=== PATIENT | male | born 1970 | race Two or more races ===

== ENCOUNTER 2021-05-19 00:56 | Inpatient (IN) | payer MEDICAID, OTHER ==
[2021-05-19] VITALS (8 sets, daily range): BP systolic 74–114; BP diastolic 23–58
[~2021-05-19] VITALS: Ht 177.8 cm; Wt 122.5 kg
[2021-05-19 01:51] LABS: Basophils # (auto) 0.1 10 ^3/uL (0-0.2); Basophils % (auto) 0.6 % (0.0-2.0); Eosinophils # (auto) 0.1 10 ^3/uL (0-0.8); Eosinophils % (auto) 0.7 % (0.0-7.0); Hematocrit 20.4 % (41.0-53.0); Hemoglobin 7.3 g/dL (13.5-17.5); Lymphocytes # (auto) 1.2 10 ^3/uL (0.4-5.4); Lymphocytes % (auto) 12.7 % (10.0-50.0); Mean Corpuscular Hemoglobin 37.7 pg (28.0-32.0); Mean Corpuscular Hgb Conc. 35.8 g/dL (32.0-36.0); Mean Corpuscular Volume 105.2 fL (80.0-100.0); Monocytes # (auto) 1.7 10 ^3/uL (0-1.3); Monocytes % (auto) 17.4 % (0.0-12.0); Neutrophils # (auto) 6.7 10 ^3/uL (1.6-8.6); Neutrophils % (auto) 68.6 % (37.0-80.0); Nucleated Red Blood Cells % 0.3 %; Red Blood Cells 1.93 10^6/uL (4.5-5.90); Red Cell Distribution Width 18.6 % (11.8-14.3); White Blood Cell 9.8 10^3/uL (4.4-10.8)
[2021-05-19 01:52] LABS: Albumin 2.8 g/dL (3.4-5.0); BUN/Creatinine Ratio 4.6; Calcium 9.6 mg/dL (8.5-10.1)
[2021-05-19 02:04] LABS: Bilirubin, Total 28.3 mg/dL (0.2-1.0); Total Protein 6.6 g/dL (6.4-8.2)
[2021-05-19] MEDS ORDERED: SODIUM CHL 0.9% IV ONE (03:45)
[2021-05-19] MEDS ORDERED: DESMOPRESSIN IV ONE (03:45)
[2021-05-19] MEDS ORDERED: NITROGLYCERIN 0.4 MG SL TAB SL PRN (09:45)
[2021-05-19] MEDS ORDERED: MORPHINE SULFATE INJECTION 2 MG/ML SYRG IV PRN (09:45)
[2021-05-19] MEDS ORDERED: LACTULOSE 20Gm/30ML SOLN PO SCH (10:00)
[2021-05-19] MEDS ORDERED: PHYTONADIONE (VIT K)10 MG/ML 1ML VIAL SUBCUT ONE (10:00)
[2021-05-19 10:21] LABS: Basophils # (auto) 0 10 ^3/uL (0-0.2); Eosinophils # (auto) 0.1 10 ^3/uL (0-0.8); Eosinophils % (auto) 0.8 % (0.0-7.0); Neutrophils % (auto) 73.1 % (37.0-80.0); Nucleated Red Blood Cells % 0.1 %
[2021-05-19 10:24] LABS: Basophils % (auto) 0.5 % (0.0-2.0); Hemoglobin 8.8 g/dL (13.5-17.5); Lymphocytes # (auto) 0.8 10 ^3/uL (0.4-5.4); Mean Corpuscular Volume 98.3 fL (80.0-100.0); Monocytes # (auto) 1.8 10 ^3/uL (0-1.3); Monocytes % (auto) 17.6 % (0.0-12.0); Neutrophils # (auto) 7.4 10 ^3/uL (1.6-8.6); Red Blood Cells 2.44 10^6/uL (4.5-5.90); White Blood Cell 10.2 10^3/uL (4.4-10.8)
[2021-05-19 10:32] LABS: INR 2.03 (0.9-1.15)
[2021-05-19 10:45] LABS: Mean Corpuscular Hgb Conc. 36.6 g/dL (32.0-36.0); Red Cell Distribution Width 21.9 % (11.8-14.3)
[2021-05-19] MEDS ORDERED: phytonadione 10 MG in SODIUM CHL 0.9% 50 ML IV ONE (11:15)
[2021-05-19] MEDS: PANTOPRAZOLE 40 MG/10 ML VIAL INJ IV SCH ×2 (11:18→22:40)
[2021-05-19] MEDS: SODIUM CHLOR 0.9% PF (SALINE LOCK) 10ML VIAL/SYR IV SCH ×2 (14:00→22:00)
[2021-05-19] MEDS ORDERED: BUMETANIDE 2.5mg/10ml (0.25 mg/ml) INJ IV ONE (16:00)
[2021-05-19] MEDS: LACTULOSE 20Gm/30ML SOLN PO SCH ×2 (18:21→22:40)
[2021-05-19] MEDS: rifAXIMin 550 MG TAB PO SCH (22:41)
[2021-05-20] MEDS: LACTULOSE 20Gm/30ML SOLN PO SCH ×4 (06:10→22:45)
[2021-05-20] MEDS: SODIUM CHLOR 0.9% PF (SALINE LOCK) 10ML VIAL/SYR IV SCH ×3 (06:10→22:45)
[2021-05-20 08:58] LABS: Basophils # (auto) 0 10 ^3/uL (0-0.2); Eosinophils # (auto) 0.1 10 ^3/uL (0-0.8); Lymphocytes # (auto) 0.7 10 ^3/uL (0.4-5.4); Monocytes # (auto) 1.3 10 ^3/uL (0-1.3)
[2021-05-20 08:59] LABS: Basophils % (auto) 0.2 % (0.0-2.0); Eosinophils % (auto) 0.7 % (0.0-7.0); Hematocrit 24.8 % (41.0-53.0); Hemoglobin 8.6 g/dL (13.5-17.5); Lymphocytes % (auto) 8.4 % (10.0-50.0); Mean Corpuscular Hemoglobin 34.4 pg (28.0-32.0); Mean Corpuscular Hgb Conc. 34.7 g/dL (32.0-36.0); Mean Corpuscular Volume 99.1 fL (80.0-100.0); Monocytes % (auto) 15.2 % (0.0-12.0); Neutrophils # (auto) 6.5 10 ^3/uL (1.6-8.6); Neutrophils % (auto) 75.5 % (37.0-80.0); Red Blood Cells 2.51 10^6/uL (4.5-5.90); White Blood Cell 8.6 10^3/uL (4.4-10.8)
[2021-05-20 09:01] LABS: Red Cell Distribution Width 22.3 % (11.8-14.3)
[2021-05-20 09:15] LABS: Albumin 2.9 g/dL (3.4-5.0); Calcium 9.5 mg/dL (8.5-10.1); INR 1.96 (0.9-1.15); Partial Thromboplastin Time 53.2 sec (23.6-33.0); Potassium 4.3 mmol/L (3.5-5.1)
[2021-05-20 09:28] LABS: BUN/Creatinine Ratio 5.5; Bilirubin, Total 28.7 mg/dL (0.2-1.0)
[2021-05-20 09:37] LABS: Total Protein 6.5 g/dL (6.4-8.2)
[2021-05-20] MEDS ORDERED: LIDOCAINE 2%HCL (LOCAL ANESTH.) INJ 20ML MDV ONE ×2 (11:08→12:31)
[2021-05-20] MEDS: PANTOPRAZOLE 40 MG/10 ML VIAL INJ IV SCH ×2 (11:11→22:45)
[2021-05-20] MEDS ORDERED: HEPARIN SODIUM (PORCINE) 5000 UNITS/ML 1ML VIAL ONE (12:41)
[2021-05-20] MEDS ORDERED: GABA300C10 PO (13:32)
[2021-05-20] MEDS ORDERED: MID10T GT (13:32)
[2021-05-20] MEDS ORDERED: FOLI1TAB6 PO (13:32)
[2021-05-20] MEDS: rifAXIMin 550 MG TAB PO SCH ×2 (13:42→22:45)
[2021-05-20] MEDS ORDERED: NOREPINEPHRINE 8 MG/250ML KIT 250 ML IV ONE (14:01)
[2021-05-20] MEDS ORDERED: ALBUMIN 25% 100 ML IV ONE (14:15)
[2021-05-20] MEDS: NOREPINEPHRINE 8 MG/250ML KIT 250 ML IV SCH (14:25)
[2021-05-20] MEDS ORDERED: phytonadione 10 MG in SODIUM CHL 0.9% 50 ML IV ONE (14:30)
[2021-05-20] MEDS ORDERED: ALBUMIN 25% 100 ML IV SCH (15:15)
[2021-05-20] MEDS: ALBUMIN 25% 50 ML IV SCH (16:00)
[2021-05-20 16:03] VITALS: BP 98/31
[2021-05-20 16:18] VITALS: BP 87/28
[2021-05-20] MEDS: VASOPRESSIN 50 UNITS in D5W 5% 247.5 ML IV SCH (16:44)
[2021-05-20 18:17] VITALS: BP 115/60
[2021-05-20] MEDS: MIDODRINE HCL 10 MG TAB PO SCH (18:33)
[2021-05-20 19:30] VITALS: BP 116/50
[2021-05-20] MEDS ORDERED: SODIUM CHL 0.9% 1000 ML BAG XX ONE (22:15)
[2021-05-20 23:30] VITALS: BP 118/49
[2021-05-20 23:45] VITALS: BP 115/50
[2021-05-21 00:45] VITALS: BP 124/57
[2021-05-21 01:45] VITALS: BP 134/64
[2021-05-21] MEDS: ALBUMIN 25% 50 ML IV SCH ×2 (01:50→09:47)
[2021-05-21] MEDS: SODIUM CHLOR 0.9% PF (SALINE LOCK) 10ML VIAL/SYR IV SCH ×2 (05:27→14:02)
[2021-05-21] MEDS: LACTULOSE 20Gm/30ML SOLN PO SCH (05:28)
[2021-05-21] MEDS: MIDODRINE HCL 10 MG TAB PO SCH (05:28)
[2021-05-21 07:51] LABS: Hematocrit 20.7 % (41.0-53.0); Hemoglobin 7.3 g/dL (13.5-17.5); Mean Corpuscular Hemoglobin 34.4 pg (28.0-32.0); Mean Corpuscular Hgb Conc. 35.5 g/dL (32.0-36.0); Mean Corpuscular Volume 97.1 fL (80.0-100.0); Red Blood Cells 2.13 10^6/uL (4.5-5.90); White Blood Cell 15.6 10^3/uL (4.4-10.8)
[2021-05-21 07:53] LABS: Red Cell Distribution Width 21.4 % (11.8-14.3)
[2021-05-21 07:55] LABS: Basophils % (manual) 0 (0.0-2.0); Blast Cells 0; Eosinophils % (manual) 0 (0-7); Metamyelocytes % 0; Myelocytes % 0; Promyelocytes % 0; Reactive Lymphocytes 0
[2021-05-21 08:04] LABS: INR 2.23 (0.9-1.15); Partial Thromboplastin Time 47.6 sec (23.6-33.0)
[2021-05-21 08:11] LABS: Albumin 3.3 g/dL (3.4-5.0); Calcium 9.5 mg/dL (8.5-10.1); Potassium 4.2 mmol/L (3.5-5.1)
[2021-05-21 08:17] LABS: Band Neutrophils % (manual) 11; Lymphocytes % (manual) 6 (10.0-50.0); Monocytes % (manual) 10 (0-12)
[2021-05-21 08:23] LABS: BUN/Creatinine Ratio 5.7; Total Protein 6.6 g/dL (6.4-8.2)
[2021-05-21] MEDS: rifAXIMin 550 MG TAB PO SCH (10:00)
[2021-05-21] MEDS: PANTOPRAZOLE 40 MG/10 ML VIAL INJ IV SCH (10:00)
[2021-05-21] MEDS ORDERED: HYDROmorphone HCL 2 MG/ML VL IV PRN ×2 (12:00→12:15)
[2021-05-21] MEDS: LORazepam 2MG/ML-1ML VIAL IV PRN ×3 (12:15→19:44)
[2021-05-21] MEDS: NOREPINEPHRINE 8 MG/250ML KIT 250 ML IV SCH ×2 (14:31→19:45)
[2021-05-21] MEDS: VASOPRESSIN 50 UNITS in D5W 5% 247.5 ML IV SCH (16:15)
[2021-05-21 21:00] VITALS: BP 112/41
== END 2021-05-21 23:07 | disposition hospice, home (50) | DRG 673 ==
LOC: EDBD 00:56 → ER 01:00 → TELE 09:44
PROVIDERS: ADMIT Internal Medicine; ATTEND Internal Medicine
PROC: 30233K1 Transfusion of Nonautologous Frozen Plasma into Peripheral Vein, Percutaneous Approach (ICD-10-PCS; 2021-05-19)
PROC: 30233N1 Transfusion of Nonautologous Red Blood Cells into Peripheral Vein, Percutaneous Approach (ICD-10-PCS; 2021-05-19)
PROC: 30233R1 Transfusion of Nonautologous Platelets into Peripheral Vein, Percutaneous Approach (ICD-10-PCS; 2021-05-19)
PROC: 0JH63XZ Insertion of Tunneled Vascular Access Device into Chest Subcutaneous Tissue and Fascia, Percutaneous Approach (ICD-10-PCS; principal; 2021-05-20)
PROC: 02H633Z Insertion of Infusion Device into Right Atrium, Percutaneous Approach (ICD-10-PCS; 2021-05-20)
PROC: B5181ZA Fluoroscopy of Superior Vena Cava using Low Osmolar Contrast, Guidance (ICD-10-PCS; 2021-05-20)
PROC: B548ZZA Ultrasonography of Superior Vena Cava, Guidance (ICD-10-PCS; 2021-05-20)
PROC: 5A1D70Z Performance of Urinary Filtration, Intermittent, Less than 6 Hours Per Day (ICD-10-PCS; 2021-05-20)
DX: T82.42XA Displacement of vascular dialysis catheter, initial encounter (principal); N18.6 End stage renal disease; R57.8 Other shock; I12.0 Hypertensive chronic kidney disease with stage 5 chronic kidney disease or end stage renal disease; K76.6 Portal hypertension; D62 Acute posthemorrhagic anemia; D68.4 Acquired coagulation factor deficiency; T82.838A Hemorrhage due to vascular prosthetic devices, implants and grafts, initial encounter; K72.90 Hepatic failure, unspecified without coma; Z20.822 Contact with and (suspected) exposure to COVID-19; D69.6 Thrombocytopenia, unspecified; K70.31 Alcoholic cirrhosis of liver with ascites; Y84.1 Kidney dialysis as the cause of abnormal reaction of the patient, or of later complication, without mention of misadventure at the time of the procedure; Z99.2 Dependence on renal dialysis
CPT/HCPCS: 36415; 36430; 36558; 70450; 71045; 76705; 76937; 76942; 77001; 80053; 82140; 84484; 85007; 85025; 85027; 85610; 85730; 86850; 86900; 86901; 86920; 87426; 90935; 93005; 96365; 99152; 99291; C9113; G0378; J3430; J7060; P9047